=== PATIENT | female | born 1955 | race Caucasian/White ===

== ENCOUNTER → 2023-12-16 07:32 | Outpatient (REF) | payer OTHER, SELFPAY | LOC: PAVMRI 07:32 | PROVIDERS: ATTENDING PHYSICIAN Family Medicine | DX: M50.30 Other cervical disc degeneration, unspecified cervical region (principal); M54.12 Radiculopathy, cervical region | CPT/HCPCS: 72141 ==

== ENCOUNTER → 2024-03-05 10:11 | Outpatient (REF) | payer OTHER, SELFPAY | LOC: WDC 10:11 | PROVIDERS: ATTENDING PHYSICIAN Obstetrics & Gynecology; FAMILY PHYSICIAN Family Medicine | DX: Z12.31 Encounter for screening mammogram for malignant neoplasm of breast (principal) | CPT/HCPCS: 77063; 77067 ==